=== PATIENT | male | born 1995 | race Caucasian/White ===

== ENCOUNTER 2016-05-15 09:32 | Emergency (ER) | payer OTHER, BC ==
[~2016-05-15] VITALS: Ht 188 cm; Wt 86.4 kg
[2016-05-15 09:38] VITALS: BP 125/74; PULSE 71; TEMP 97.9
[2016-05-15] MEDS ORDERED: ADDERALL XR 10M10 MG PO (09:41)
== END 2016-05-15 11:10 | disposition home or self-care (01) ==
LOC: COL.ER 09:32
DX: S61.512A Laceration without foreign body of left wrist, initial encounter (principal); W26.0XXA Contact with knife, initial encounter; Y92.009 Unspecified place in unspecified non-institutional (private) residence as the place of occurrence of the external cause